=== PATIENT | female | born 1980 | race Caucasian/White ===

== ENCOUNTER 2019-05-23 08:40 | Emergency (ER) | payer BC ==
[2019-05-23 09:09] VITALS: BP 119/79
--- NOTE | 2019-05-23 09:31 | UC ---
UC General HPI - HPI Summary HPI Summary: DAY 5 OF SORE THROAT, FEVER, HEADACHE AND STOMACH BEING OFF. NO URI, V/D. PAINFUL TO SWALLOW. - History of Current Complaint Chief Complaint: UCGeneralIllness Stated Complaint: ST,ROWELL,FEVER Time Seen by Provider: 05/23/19 09:16 Hx Obtained From: Patient Hx Last Menstrual Period: 05/22/19 Onset/Duration: Gradual Onset Timing: Constant Pain Intensity: 5 Associated Signs & Symptoms: Negative: Abdominal Pain, Diarrhea, Vomiting - Allergy/Home Medications Allergies/Adverse Reactions: Allergies Allergy/AdvReac Type Severity Reaction Status Date / Time No Known Allergies Allergy Verified 05/23/19 09:10 Home Medications: Home Medications Bcp 1 tab PO DAILY 05/23/19 [History] PMH/Surg Hx/FS Hx/Imm Hx Previously Healthy: Yes - Surgical History Surgical History: Yes Surgery Procedure, Year, and Place: 2 C-SECtions. SINUS POLYPECTOMY - Family History Known Family History: Positive: Non-Contributory - Social History Lives: With Family Alcohol Use: None Substance Use Type: None Smoking Status (MU): Never Smoked Tobacco Review of Systems All Other Systems Reviewed And Are Negative: Yes Constitutional: Positive: Fever ENT: Positive: Sore Throat. Negative: Ear Ache, Nasal Discharge Respiratory: Negative: Shortness Of Breath, Cough Gastrointestinal: Positive: Nausea. Negative: Abdominal Pain, Vomiting, Diarrhea Neurological: Positive: Headache Physical Exam Triage Information Reviewed: Yes Appearance: Well-Appearing Vital Signs: Initial Vital Signs Temp 97.9 F 05/23/19 09:07 Pulse 81 05/23/19 09:07 Resp 16 05/23/19 09:07 BP 119/79 05/23/19 09:07 Pulse Ox 100 05/23/19 09:07 Vital Signs Reviewed: Yes Eyes: Positive: Conjunctiva Clear ENT: Positive: Pharyngeal erythema - with exudate, TMs normal, Tonsillar exudate , Uvula midline. Negative: Nasal congestion, Nasal drainage, Trismus, Muffled voice, Hoarse voice Neck: Positive: Supple, Tenderness @ - peritonsil, Enlarged Nodes @ - peritonsil Respiratory: Positive: No respiratory distress Abdomen Description: Positive: Nontender Musculoskeletal: Positive: ROM Intact Neurological: Positive: Alert Psychological: Positive: Normal Response To Family, Age Appropriate Behavior Skin Exam: Normal Skin: Negative: Rashes Diagnostics - Laboratory Lab Results: RAPID STREP=NEG Course/Dx - Differential Dx - Multi-Symptom Differential Diagnoses: Other - RAPID STREP = NEG. NO CONCERN FOR ABSCESS - Diagnoses Provider Diagnosis: Pharyngitis Discharge - Sign-Out/Discharge Documenting (check all that apply): Patient Departure All imaging exams completed and their final reports reviewed: No Studies - Discharge Plan Condition: Stable Disposition: HOME Patient Education Materials: Pharyngitis (ED) Referrals: Boby Scott MD [Primary Care Provider] - Additional Instructions: follow up if not better in 5 - 7 days or sooner if worse. - Billing Disposition and Condition Condition: STABLE Disposition: Home
== END 2019-05-23 09:49 | disposition home or self-care (01) ==
LOC: UCCORT 08:40
DX: J02.9 Acute pharyngitis, unspecified (principal)
CPT/HCPCS: 87651; 99211; G0463